=== PATIENT | female | born 1945 | race Caucasian/White ===

== ENCOUNTER 2021-09-22 10:18 | Emergency (ER) | payer MEDICARE ==
[~2021-09-22 10:18] MED LIST: Iopamidol 370 76% 125 ML VIAL FS ONE; Sodium Chloride 0.9% 100 ML BAG ONE
[2021-09-22] MEDS ORDERED: Albuterol Sulfate 2.5 mg/0.5 ml Neb ONE (10:47)
[2021-09-22] MEDS ORDERED: methylPREDNISolone Sod Succ/PF 125 MG/2 ML VIAL ONE (10:49)
[2021-09-22] MEDS ORDERED: Aspirin Chewable 81 MG TAB ONE (10:49)
[2021-09-22 11:15] LABS: #Basophils 0.1 thou/uL (0.0-0.2); #Eosinphils 0.3 thou/uL (0.0-0.7); #Lymphocytes 2.4 thou/uL (1.20-3.40); #Monocytes 0.7 thou/uL (0.11-0.59); #Neutrophils 9.7 thou/uL (1.40-6.50); %Basophils 0.8 % (0.0-1.0); %Eosinophils 2.3 % (0.0-10.0); %Lymphocytes 17.8 % (21.0-51.0); %Monocytes 5.6 % (0.0-10.0); %Neutrophils 73.6 % (42.0-75.0); Hemoglobin 14.5 g/dL (12.0-16.0); Mean Corpuscular HGB CONC 32.7 g/dL (32.0-36.0); Mean Corpuscular Hemoglobin 28.2 pg (27.0-31.0); Mean Corpuscular Volume 86.3 fL (78.0-98.0); Mean Platelet Volume 9.7 fL (7.4-10.4); Platelet Count 202 thou/uL (130-400); RBC Distribution Width 13.3 % (11.5-14.5); Red Blood Cell (RBC) Count 5.12 mill/uL (4.20-5.40); White Blood Cell (WBC) Count 13.2 thou/uL (4.8-10.8)
[2021-09-22] MEDS ORDERED: cefTRIAXone\\ROCEPHIN 2 GM VIAL ONE (11:26)
[2021-09-22] MEDS ORDERED: Sodium Chloride 0.9% 100 ML ONE (11:26)
[2021-09-22 11:29] LABS: ALT (SGPT) 13 U/L (8-55); AST (SGOT) 12 U/L (5-34); Albumin 3.7 g/dL (3.4-4.8); Alkaline Phosphatase 111 U/L (40-110); Anion Gap 17 mmol/L (10-20); BUN (Urea Nitrogen) 20 mg/dL (9.8-20.1); Bilirubin, Total 0.4 mg/dL (0.2-1.2); Calc. Creatinine Clearance 0 mL/min (70-130); Calcium 8.9 mg/dL (7.8-10.44); Carbon Dioxide 23 mmol/L (23-31); Chloride 102 mmol/L (98-107); Estimated GFR 76; Globulin 2.7 g/dL (2.4-3.5); Glucose 158 mg/dL (83-110); Potassium 3.9 mmol/L (3.5-5.1); Protein, Total 6.4 g/dL (5.8-8.1); Sodium 138 mmol/L (136-145)
[2021-09-22 11:48] LABS: SARS-CoV-2 NAA Rapid Test Not Detected (NotDetected)
[2021-09-22] MEDS ORDERED: Sodium Chloride 0.9% 250 ML 250 ML ONE (11:54)
[2021-09-22] MEDS ORDERED: Azithromycin 500 MG VIAL ONE (11:54)
== END 2021-09-22 13:20 | disposition short-term general hospital (02) ==
LOC: MADERS 10:18
DX: J44.1 Chronic obstructive pulmonary disease with (acute) exacerbation (principal); Z20.822 Contact with and (suspected) exposure to COVID-19; E11.40 Type 2 diabetes mellitus with diabetic neuropathy, unspecified; E78.5 Hyperlipidemia, unspecified; I10 Essential (primary) hypertension; K21.9 Gastro-esophageal reflux disease without esophagitis; F17.210 Nicotine dependence, cigarettes, uncomplicated; Z79.899 Other long term (current) drug therapy
CPT/HCPCS: 36415; 71045; 71275; 80053; 83880; 84484; 85025; 85379; 87040; 93005; 94760; 96365; 96367; 96375; J0456; J0696; J2930; J3490; J7050; J7611; J7620; Q9967